=== PATIENT | female | born 1995 | race Caucasian/White ===

== ENCOUNTER → 2017-11-01 | Outpatient (CLI) | payer OTHER ==
[~2017-11-01] MED LIST: ACEBUTCAFT PO; AMOCLA500 PO; Augmentin 875-1 EACH PO; BENZ100A PO; CEPH500 PO; CODACE30 PO; DESO.05TCA TP; DIPH50 PO; FAMO40 PO; FERSU90EL PO; HYDACE5 PO; HYDR.5TC TOP; IBUP400 PO; IBUP800 PO; MAGIC MOUTHWASH; METO5A PO; METPRE4DP PO; Mucinex600 MG PO; ONDA4ODT MM; OXYACE5T PO; PHENA200 PO; PRED10 PO; PRED20 PO; PRENZ PO; PSEU120ER PO; Percocet 5-3251 EACH PO; Verotin-Gr Cap1 EACH PO; Zofran Odt4 MG SL
[2017-11-01 11:55] LABS: Specimen Source URINE
[2017-11-02 03:16] LABS: Source Urine
== END | disposition home or self-care (01) ==
LOC: LAB 11:19
PROVIDERS: Advanced Practice Midwife
DX: Z11.3 Encounter for screening for infections with a predominantly sexual mode of transmission (principal)
CPT/HCPCS: 87491; 87591

== ENCOUNTER 2017-11-18 20:42 | Emergency (ER) | payer OTHER ==
[~2017-11-18] VITALS: Ht 157.5 cm; Wt 46.3 kg
[~2017-11-18 20:42] MED LIST changes: -Augmentin 875-1 EACH PO; -BENZ100A PO; -Mucinex600 MG PO; -PSEU120ER PO
[2017-11-18] MEDS ORDERED: Mucinex600 MG PO (22:13)
[2017-11-18] MEDS ORDERED: Augmentin 875-1 EACH PO (22:13)
[2017-11-18] MEDS ORDERED: PSEU120ER PO (22:13)
== END 2017-11-18 22:25 | disposition home or self-care (01) ==
LOC: ER 20:42
DX: H65.93 Unspecified nonsuppurative otitis media, bilateral (principal); J06.9 Acute upper respiratory infection, unspecified; Z88.5 Allergy status to narcotic agent; Z90.49 Acquired absence of other specified parts of digestive tract
CPT/HCPCS: 99283

== ENCOUNTER 2018-01-14 08:51 | Emergency (ER) | payer OTHER ==
[~2018-01-14] VITALS: Ht 157.5 cm; Wt 44.5 kg
[~2018-01-14 08:51] MED LIST changes: +Augmentin 875-1 EACH PO; +Mucinex600 MG PO; +PSEU120ER PO
[2018-01-14] MEDS ORDERED: BENZ100A PO (10:54)
== END 2018-01-14 10:59 | disposition home or self-care (01) ==
LOC: ER 08:51
DX: J06.9 Acute upper respiratory infection, unspecified (principal); Z88.5 Allergy status to narcotic agent; Z79.899 Other long term (current) drug therapy
CPT/HCPCS: 87081; 87430; 99283

== ENCOUNTER 2019-06-21 11:35 | Day surgery (SDC) | payer OTHER ==
[~2019-06-21] VITALS: Ht 157.5 cm; Wt 50.8 kg
[~2019-06-21 11:35] MED LIST changes: +BENZ100A PO; +DHEA PO; +Ferrous Sulfat325 M2 PO
--- NOTE | 2019-06-21 13:22 | NUR ---
06/21/19 1322 Melody Jarrett ABDOMEN PREPPED BY [facility].GENNYL USING DURAPREP.
== END 2019-06-21 15:00 | disposition home or self-care (01) ==
LOC: ORSCSDS 11:35
PROVIDERS: Obstetrics & Gynecology
PROC: 0UT74ZZ Resection of Bilateral Fallopian Tubes, Percutaneous Endoscopic Approach (ICD-10-PCS; principal; 2019-06-21 13:00)
DX: Z30.2 Encounter for sterilization (principal); F17.210 Nicotine dependence, cigarettes, uncomplicated; F17.220 Nicotine dependence, chewing tobacco, uncomplicated
CPT/HCPCS: 88302; J0171; J1100; J1885; J2405; J2704; J2710; J3010; J7120

== ENCOUNTER → 2022-12-22 | Outpatient (CLI) | payer OTHER ==
[2022-12-22 17:59] LABS: BASOPHILS ABSOLUTE AUTO 0.07 K/mm3 (0.00-0.23); BASOPHILS PERCENT AUTO 1 % (0-2); EOSINOPHILS ABSOLUTE AUTO 0.17 K/mm3 (0.00-0.68); EOSINOPHILS PERCENT AUTO 3 % (0-6); Hematocrit 35.4 % (33.0-51.0); Hemoglobin 11.7 g/dL (11.5-16.0); IMMATURE GRAN ABSOLUTE AUTO 0.01 K/mm3 (0.00-0.10); IMMATURE GRAN PERCENT AUTO 0 % (0-1); LYMPHOCYTES PERCENT AUTO 23 % (21-46); MONOCYTES ABSOLUTE AUTO 0.47 K/mm3 (0.16-1.47); MONOCYTES PERCENT AUTO 8 % (4-13); Mean Corpuscular HGB 29.8 pg (26.0-34.0); Mean Corpuscular HGB Conc 33.1 g/dL (31.5-36.5); Mean Corpuscular Volume 90 fL (80-100); Mean Platelet Volume 9.7 fL (9.1-12.4); NEUTROPHILS PERCENT AUTO 65 % (41-73); Platelet Count 321 K/mm3 (150-400); RDW Coefficient Variation 11.9 % (11.7-14.2); RDW Standard Deviation 39.2 fL (35.1-46.3); Red Blood Cell Count 3.92 M/mm3 (3.80-5.20); White Blood Cell Count 6.02 K/mm3 (4.00-11.30)
[2022-12-22 20:08] LABS: Albumin, Blood 4.2 g/dL (3.4-5.0); Albumin/Globulin Ratio 1.2 (0.8-1.8); Bilirubin, Total 0.3 mg/dL (0.1-1.0); Bun/Creatinine Ratio 30.6 (12.0-20.0); Calcium, Blood 9.3 mg/dL (8.5-10.1); Creatinine, Blood 0.52 mg/dL (0.40-1.00); Globulin, Blood 3.4 g/dL (2.2-4.0); Percent Saturation 19.4 % (15.0-50.0); Potassium, Blood 3.6 mmol/L (3.5-5.5); Thyroid Stimulating Hormone 2.51 uIU/mL (0.360-4.800); Total Protein, Blood 7.6 g/dL (6.4-8.2)
== END | disposition home or self-care (01) ==
LOC: LAB SHORT 15:35
PROVIDERS: Hospitalist
DX: E61.1 Iron deficiency (principal); R53.83 Other fatigue
CPT/HCPCS: 80053; 82728; 83540; 83550; 84443; 85025

== ENCOUNTER 2024-09-06 06:08 | Day surgery (SDC) | payer OTHER ==
[~2024-09-06] VITALS: Ht 157.5 cm; Wt 56.4 kg
[2024-09-06] VITALS (13 sets, daily range): BP systolic 115–139; BP diastolic 72–82
[~2024-09-06 06:08] MED LIST changes: +ETHINYL ESTRADIOL PO; +LEVONORGESTREL PO
[2024-09-06] MEDS ORDERED: CeFAZolin Sodium 2,000 MG in NS 100 ML IV SCH (06:30)
[2024-09-06] MEDS ORDERED: Lactated Ringer's 1,000 ML IV SCH (06:30)
[2024-09-06] MEDS ORDERED: Ketorolac Tromethamine 30mg Vial ONE (06:40)
[2024-09-06] MEDS ORDERED: propofoL 20 ML IV ONE (06:40)
[2024-09-06] MEDS ORDERED: Ondansetron HCl 2 MG / ML 2ML Vial ONE (06:40)
[2024-09-06] MEDS ORDERED: FentaNYL Citrate 50 MCG/ML 5 ML Injection ONE (06:40)
[2024-09-06] MEDS ORDERED: Dexamethasone Sod Phos 10 MG/ML 1ML VIAL ONE (06:40)
[2024-09-06] MEDS ORDERED: Rocuronium Bromide 10 MG/ML 5ML Injection IV ONE (06:40)
[2024-09-06] MEDS ORDERED: Lidocaine 1%-Epineph 1:100000 20 ML MDV INJ ONE (08:23)
[2024-09-06] MEDS ORDERED: Sugammadex Sodium 200 MG/2ML SDV (100 MG/ML) ONE (08:34)
[2024-09-06] MEDS ORDERED: FentaNYL Citrate 50 MCG/ML 2 ML Injection ONE (09:37)
[2024-09-06] MEDS ORDERED: OxyCODONE 5 mg/Acetamin 325 mg TABLET PO PRN (09:45)
[2024-09-06] MEDS ORDERED: Acetaminophen 325 MG TABLET PO PRN (09:45)
[2024-09-06] MEDS ORDERED: Simethicone 80 MG Chew PO PRN (09:45)
[2024-09-06] MEDS ORDERED: Ibuprofen 400 MG Tab PO PRN (09:50)
[2024-09-06] MEDS ORDERED: DiphenhydrAMINE HCL 25 MG Cap PO PRN (09:50)
[2024-09-06] MEDS ORDERED: FentaNYL Citrate 50 MCG/ML 2 ML Injection IV PRN (09:50)
[2024-09-06] MEDS ORDERED: FLU VACC TS2024-25(6MOS UP)/PF 45 MCG/0.5 ML SYRINGE IM SCH (09:50)
[2024-09-06] MEDS ORDERED: Ondansetron HCl 2 MG / ML 2ML Vial IV PRN (09:50)
--- NOTE | 2024-09-06 10:47 | NUR ---
POST OP S/P LAVH. LAP SITES X2 TO ABD WITH GAUZE/TEGADERM ARE CDI. NO VAGINAL BLEEDING NOTED ON SUSAN PAD. KPAD TO ABD FOR COMFORT. REPORTS 7/10 PAIN. MEDICATED WITH FENTANYL + PERCOCET. HARRELL INTACT AND DRAINING TO GRAVITY, PLANNING TO D/C WHEN PT OOB AND AMBULATING. POST OP VSS AND IN PROGRESS. PT TOLERATING SIPS OF WATER AND CRACKERS. FAMILY AT BEDSIDE FOR SUPPORT. ORIENTED TO ROOM, CALL LIGHT, AND TREATMENT PLAN.
[2024-09-06] MEDS ORDERED: HYDR1TAB94 PO (11:01)
[2024-09-06] MEDS ORDERED: IBUP800 PO (11:01)
[2024-09-06] MEDS ORDERED: Ketorolac Tromethamine 30mg Vial IV SCH (12:00)
[2024-09-06 13:27] LABS: BASOPHILS ABSOLUTE AUTO 0.06 K/mm3 (0.00-0.23); BASOPHILS PERCENT AUTO 0 % (0-2); EOSINOPHILS PERCENT AUTO 0 % (0-6); Hematocrit 31.8 % (33.0-51.0); Hemoglobin 9.8 g/dL (11.5-16.0); IMMATURE GRAN ABSOLUTE AUTO 0.07 K/mm3 (0.00-0.10); IMMATURE GRAN PERCENT AUTO 0 % (0-1); LYMPHOCYTES ABSOLUTE AUTO 0.64 K/mm3 (0.84-5.20); LYMPHOCYTES PERCENT AUTO 3 % (21-46); MONOCYTES ABSOLUTE AUTO 0.37 K/mm3 (0.16-1.47); MONOCYTES PERCENT AUTO 2 % (4-13); Mean Corpuscular HGB 24.6 pg (26.0-34.0); Mean Corpuscular HGB Conc 30.8 g/dL (31.5-36.5); Mean Corpuscular Volume 80 fL (80-100); Mean Platelet Volume 9.6 fL (9.1-12.4); NEUTROPHILS ABSOLUTE AUTO 17.86 K/mm3 (1.96-9.15); NEUTROPHILS PERCENT AUTO 94 % (41-73); Platelet Count 460 K/mm3 (150-400); RDW Coefficient Variation 16.5 % (11.7-14.2); RDW Standard Deviation 48.5 fL (35.1-46.3); Red Blood Cell Count 3.99 M/mm3 (3.80-5.20)
[2024-09-06] MEDS ORDERED: Percocet 5-3251 EACH PO (13:59)
--- NOTE | 2024-09-06 14:19 | NUR ---
DISCHARGE PT BONNIE PO, REPORTS TOLERABLE AND MANAGED PAIN RELIEF, VOIDING SPONTANEOUSLY, AND AMBULATING INDEP IN ROOM. PT EDUCATED ON AND RECEIVED PRINTED DISCHARGE INSTRUCTIONS AND VERBALIZED AN UNDERSTANDING. HARD RX FOR PERCOCET + MOTRIN GIVEN TO PT. IV DC'D. PT LEFT WITH ALL PERSONAL BELONGINGS AND MOTHER AT SIDE TO TAKE HER HOME.
== END 2024-09-06 14:21 | disposition home or self-care (01) ==
LOC: ORSCMMR 06:08 → ORD 08:00 → ORSCMMR 08:00 → SURS 10:20 → ORSCMMR 14:21 → ORD 10-04 10:30
PROVIDERS: Obstetrics & Gynecology
PROC: 0UT9FZZ Resection of Uterus, Via Natural or Artificial Opening With Percutaneous Endoscopic Assistance (ICD-10-PCS; principal; 2024-09-06 08:00)
DX: N93.8 Other specified abnormal uterine and vaginal bleeding (principal); D63.8 Anemia in other chronic diseases classified elsewhere
CPT/HCPCS: 36415; 85025; 86850; 86900; 86901; 88307; A9270; J0690; J1100; J1885; J2405; J2704; J3010; J7120

== ENCOUNTER → 2024-11-27 | Outpatient (CLI) | payer OTHER ==
[~2024-11-27] MED LIST changes: +HYDR1TAB94 PO
[2024-11-27 14:45] LABS: BASOPHILS ABSOLUTE AUTO 0.09 K/mm3 (0.00-0.23); BASOPHILS PERCENT AUTO 2 % (0-2); EOSINOPHILS ABSOLUTE AUTO 0.14 K/mm3 (0.00-0.68); EOSINOPHILS PERCENT AUTO 3 % (0-6); Hematocrit 34.4 % (33.0-51.0); Hemoglobin 10.9 g/dL (11.5-16.0); IMMATURE GRAN PERCENT AUTO 0 % (0-1); LYMPHOCYTES ABSOLUTE AUTO 1.16 K/mm3 (0.84-5.20); LYMPHOCYTES PERCENT AUTO 27 % (21-46); MONOCYTES ABSOLUTE AUTO 0.41 K/mm3 (0.16-1.47); MONOCYTES PERCENT AUTO 10 % (4-13); Mean Corpuscular HGB 26.3 pg (26.0-34.0); Mean Corpuscular HGB Conc 31.7 g/dL (31.5-36.5); Mean Corpuscular Volume 83 fL (80-100); Mean Platelet Volume 10.1 fL (9.1-12.4); NEUTROPHILS ABSOLUTE AUTO 2.48 K/mm3 (1.96-9.15); NEUTROPHILS PERCENT AUTO 58 % (41-73); Platelet Count 345 K/mm3 (150-400); RDW Coefficient Variation 16.8 % (11.7-14.2); RDW Standard Deviation 51.1 fL (35.1-46.3); Red Blood Cell Count 4.15 M/mm3 (3.80-5.20); White Blood Cell Count 4.28 K/mm3 (4.00-11.30)
[2024-11-27 15:12] LABS: Percent Saturation 6.5 % (15.0-50.0)
[2024-11-27 15:16] LABS: Albumin, Blood 4.1 g/dL (3.4-5.0); Albumin/Globulin Ratio 1.1 (0.8-1.8); Bilirubin, Total 0.3 mg/dL (0.1-1.0); Bun/Creatinine Ratio 13.4 (12.0-20.0); Calcium, Blood 9.2 mg/dL (8.5-10.1); Creatinine, Blood 0.6 mg/dL (0.40-1.00); Globulin, Blood 3.7 g/dL (2.2-4.0); Potassium, Blood 3.6 mmol/L (3.5-5.5); Thyroid Stimulating Hormone 1.27 uIU/mL (0.360-4.800); Total Protein, Blood 7.8 g/dL (6.4-8.2)
== END | disposition home or self-care (01) ==
LOC: LAB SHORT 13:32 → LAB 13:32
PROVIDERS: Hospitalist
DX: D50.8 Other iron deficiency anemias (principal); R53.83 Other fatigue
CPT/HCPCS: 80053; 82728; 83540; 83550; 84443; 85025

== ENCOUNTER → 2025-01-15 | Outpatient (CLI) | payer OTHER ==
[2025-01-15 19:17] LABS: BASOPHILS ABSOLUTE AUTO 0.08 K/mm3 (0.00-0.23); BASOPHILS PERCENT AUTO 1 % (0-2); EOSINOPHILS ABSOLUTE AUTO 0.12 K/mm3 (0.00-0.68); EOSINOPHILS PERCENT AUTO 2 % (0-6); Hematocrit 34.9 % (33.0-51.0); Hemoglobin 11.3 g/dL (11.5-16.0); IMMATURE GRAN ABSOLUTE AUTO 0.02 K/mm3 (0.00-0.10); IMMATURE GRAN PERCENT AUTO 0 % (0-1); LYMPHOCYTES ABSOLUTE AUTO 1.32 K/mm3 (0.84-5.20); LYMPHOCYTES PERCENT AUTO 21 % (21-46); MONOCYTES ABSOLUTE AUTO 0.61 K/mm3 (0.16-1.47); MONOCYTES PERCENT AUTO 10 % (4-13); Mean Corpuscular HGB Conc 32.4 g/dL (31.5-36.5); Mean Corpuscular Volume 86 fL (80-100); Mean Platelet Volume 9.7 fL (9.1-12.4); NEUTROPHILS ABSOLUTE AUTO 4.14 K/mm3 (1.96-9.15); NEUTROPHILS PERCENT AUTO 66 % (41-73); Platelet Count 330 K/mm3 (150-400); RDW Coefficient Variation 13.5 % (11.7-14.2); RDW Standard Deviation 42.2 fL (35.1-46.3); Red Blood Cell Count 4.04 M/mm3 (3.80-5.20); White Blood Cell Count 6.29 K/mm3 (4.00-11.30)
[2025-01-15 19:49] LABS: Percent Saturation 18.5 % (15.0-50.0)
== END | disposition home or self-care (01) ==
LOC: LAB SHORT 17:44 → LAB 17:44
PROVIDERS: Hospitalist
DX: D50.8 Other iron deficiency anemias (principal)
CPT/HCPCS: 82728; 83540; 83550; 85025